=== PATIENT | male | born 1965 | race African-American/Black ===

== ENCOUNTER → 2017-06-27 | Outpatient (CLI) | payer OTHER ==
[~2017-06-27] MED LIST: DILTIAZEM 24HR120 M1 PO; HYZAAR 50-12.51 TAB; LISINOPRIL10 MG PO; METOPROLOL TAR25 MG DOB; NORVASC PO; PRINIVIL20 M1; ZITHROMAX PO; ZOFRAN PO
--- NOTE | ~2017-06-27 | CR21 ---
[facility]. [facility] [place] A Service of [facility] & [facility] RADIOLOGY TEXT RESULTS PATIENT: JOSIAH PERKINS LOCATION: [facility] : 65 UNIT #: [id number] AGE: [address]: Hao Mcmahan MD SEX: M ORDER DR: [id number] [place] [id number] O MR#: [id number] Acc #: [id number] NAME: JOSIAH PERKINS, : 1965 SEX: M STUDY DATE/TIME: 06/27/2017 11:13 UNIT: [facility] ROOM: STUDY DESCRIPTION: CR Ankle Min 3 Views Rt Attending Physician: Hao Mcmahan M.D. Referring Physician: Hao Mcmahan M.D. Ordering Physician: Hao Mcmahan M.D. Primary Care Physician: Hao Mcmahan M.D. MEDICAL IMAGING REPORT This report is preliminary unless electronic signature is present. EXAM Right ankle, 06/27 INDICATION Chronic ankle pain for many years. Prior history of trauma. FINDINGS Three views of the right ankle were obtained. There is posterior and plantar calcaneal spurring. There is a large talar beak. There is fairly pronounced spurring in the midfoot. There is a large os trigonum. Well corticated bone fragments below the medial malleolus are presumably related to old trauma. No acute fractures are seen. Ankle alignment is normal. IMPRESSION Fairly extensive degenerative and/or old post-traumatic change. No acute findings. No malalignment. Dictated by... Ronald Mendoza Jr., M.D. THIS IS AN ELECTRONICALLY VERIFIED REPORT Ronald Mendoza Jr., M.D. at 06/28/2017 5:11 PM CARLEY/vivian TD: 06/28/2017 13:51 JOB #: [id number] MEDICAL IMAGING REPORT Page 1 of 1
--- NOTE | ~2017-06-27 | CR20 ---
[facility] A Service of [facility] RADIOLOGY TEXT RESULTS PATIENT: JOSIAH PERKINS LOCATION: [facility] : [birth year] UNIT #: [id number] AGE: [address]: Hao Mcmahan MD SEX: M ORDER DR: [id number] [place] [id number] O MR#: [id number] Acc #: [id number] NAME: JOSIAH PERKINS, SR : 1965 SEX: M STUDY DATE/TIME: 06/27/2017 11:13 UNIT: [facility] ROOM: STUDY DESCRIPTION: CR Ankle Min 3 Views Lt Attending Physician: Hao Mcmahan M.D. Referring Physician: Hao Mcmahan M.D. Ordering Physician: Hao Mcmahan M.D. Primary Care Physician: Hao Mcmahan M.D. MEDICAL IMAGING REPORT This report is preliminary unless electronic signature is present. EXAM Left ankle 06/27/2017. INDICATIONS Ankle pain for many years chronically. Prior history of trauma. TECHNIQUE 3 views of the left ankle were obtained. FINDINGS There is extensive chronic spurring in the midfoot and at the tibiotalar joint and there is a very large osteophyte at the talonavicular joint. There is a talar beak. Posterior plantar calcaneal spurs are present. Well corticated bone fragments below the medial malleolus likely reflect old trauma. Ankle alignment is normal. No fractures are seen currently. 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 No malalignment or acute fracture. There is evidence of old trauma about the medial malleolus. Dictated by... Ronald Mendoza Jr., M.D. THIS IS AN ELECTRONICALLY VERIFIED REPORT Ronald Mendoza Jr., M.D. at 06/28/2017 5:11 PM CARLEY/sixto TD: 06/28/2017 13:49 JOB #: [id number] MEDICAL IMAGING REPORT [facility] A Service of [facility] & [facility] RADIOLOGY TEXT RESULTS PATIENT: JOSIAH PERKINS SR [id number] [birth year] UNIT #: [id number] AGE: [address]: Hao Mcmahan MD SEX: M ORDER DR: Page 1 of 1
--- NOTE | ~2017-06-27 | CR142 ---
[facility]. [facility] A Service of [facility] & [facility] RADIOLOGY TEXT RESULTS PATIENT: JOSIAH PERKINS LOCATION: [facility] : 65 UNIT #: [id number] AGE: [address]: Hao Mcmahan MD SEX: M ORDER DR: [id number] [place] [id number] O MR#: [id number] Acc #: [id number] NAME: JOSIAH PERKINS, : 1965 SEX: M STUDY DATE/TIME: 06/27/2017 11:13 UNIT: [facility] ROOM: STUDY DESCRIPTION: CR Hand Min 3 Views Rt Attending Physician: Hao Mcmahan M.D. Referring Physician: Hao Mcmahan M.D. Ordering Physician: Hao Mcmahan M.D. Primary Care Physician: Hao Mcmahan M.D. MEDICAL IMAGING REPORT This report is preliminary unless electronic signature is present. EXAM Right hand, 06/27/2017 INDICATION Right hand pain for years after basketball injury. COMPARISON None. FINDINGS Three views of the right hand were obtained. The bones are normal. There is mild degenerative change at the first MCP joint and moderate degenerative change of the first IP joint. The other bones are normal. IMPRESSION Degenerative change in the thumb, otherwise normal. Dictated by... Faisal Artis M.D. THIS IS AN ELECTRONICALLY VERIFIED REPORT Faisal Artis M.D. at 06/28/2017 6:04 AM JEANETH/moris TD: 06/28/2017 03:17 JOB #: [id number] MEDICAL IMAGING REPORT Page 1 of 1
== END | disposition home or self-care (01) ==
LOC: SRAD 10:52 → EDSTATUS 13:58
DX: M25.572 Pain in left ankle and joints of left foot (principal); M25.571 Pain in right ankle and joints of right foot; M79.641 Pain in right hand; M19.041 Primary osteoarthritis, right hand; M19.072 Primary osteoarthritis, left ankle and foot; Z87.828 Personal history of other (healed) physical injury and trauma
CPT/HCPCS: 73130; 73610